=== PATIENT | female | born 1965 | race Caucasian/White ===

== ENCOUNTER 2017-08-03 06:06 | Day surgery (SDC) | payer OTHER ==
[~2017-08-03] VITALS: Ht 157.5 cm; Wt 65.5 kg
[2017-08-03] MEDS ORDERED: FISH1200 PO (06:52)
[2017-08-03] MEDS ORDERED: VITA200C3 PO (06:52)
[2017-08-03] MEDS ORDERED: VITA500T83 PO (06:52)
[2017-08-03 06:58] VITALS: BP 109/81; PULSE 59; RESP 18; TEMP 98.7; O2SAT 100
[2017-08-03] MEDS ORDERED: CHLORHEXIDINE GLUCONATE 2 % 1 PACK (2 CLOTHS) TOPICAL SCH (07:15)
[2017-08-03] MEDS ORDERED: POVIDONE IODINE 5% (ANTISEPSIS KIT) 4 APPLICATIONS EACH NARE SCH (07:15)
[2017-08-03] MEDS: ceFAZolin 2 GM PREMIX 50 ML - implanted port/tunneled catheter insertion IV SCH ×2 (07:29→10:53)
[2017-08-03] MEDS: VANCOMYCIN 1 GM/200 ML PREMIX ON-CALL IV SCH ×2 (07:30→10:53)
[2017-08-03 07:31] LABS: AUTOMATED NEUTROPHIL # 2.4 TH/MM3 (1.8-7.7); BASOPHIL % 0.9 % (0.0-2.0); EOSINOPHIL # 0.3 TH/MM3 (0-0.4); EOSINOPHIL % 5.8 % (0.0-4.0); HEMATOCRIT 37.5 % (35.0-46.0); LYMPH % 33.6 % (9.0-44.0); LYMPHOCYTE # 1.6 TH/MM3 (1.0-4.8); MEAN CELL VOLUME 64.8 FL (80.0-100.0); MEAN CORPUSCULAR HEMOGLOBIN 20.7 PG (27.0-34.0); MEAN CORPUSCULAR HGB CONC 31.9 % (32.0-36.0); MEAN PLATELET VOLUME 8.6 FL (7.0-11.0); MONO % 8.4 % (0.0-8.0); MONOCYTE # 0.4 TH/MM3 (0-0.9); NEUT % 51.3 % (16.0-70.0); PLATELET COUNT 348 TH/MM3 (150-450); RED BLOOD COUNT 5.79 MIL/MM3 (4.00-5.30); WHITE BLOOD COUNT 4.6 TH/MM3 (4.0-11.0)
[2017-08-03 07:40] LABS: PROTHROMBIN TIME - PATIENT 9.7 SEC (9.8-11.6)
[2017-08-03] MEDS ORDERED: LIDOCAINE 1%/EPINEPHrine 1:100,000 SOLN 20 ML VIAL ONE (07:50)
[2017-08-03] MEDS ORDERED: fentaNYL CITRATE 250 MCG/5 ML AMP ONE (07:56)
[2017-08-03] MEDS ORDERED: MIDAZOLAM HCL 5 MG/5 ML VIAL ONE (07:56)
[2017-08-03] MEDS ORDERED: SODIUM BICARBONATE 8.4% INJ 50 ML ONE (08:27)
--- NOTE | 2017-08-03 08:49 | PD.RAD ---
Post Procedure Progress Note Pre Procedure Diagnosis: (1) Breast cancer Post Procedure Diagnosis: (1) Breast cancer Procedure Date: Aug 03, 2017 Supervising Radiologist: Jose Guadalupe Hardy Estimated blood loss: 2cc Anesthesia: Local, Conscious Sedation Plan of Activity Patient to Unit: ROPU Patient Condition: Good Additional Comments: Port placed via the right IJ catheter in good position OK for use See PACS Report for procedural detail/treatment Jose Guadalupe Hardy MD Aug 03, 2017 08:49
[2017-08-03 09:00] VITALS: BP 98/67; PULSE 58; RESP 18; TEMP 97.7; O2SAT 98
[2017-08-03] MEDS ORDERED: SODIUM CHLORIDE 0.9% FLUSH 10 ML FLUSH IVF PRN (09:00)
[2017-08-03 09:15] VITALS: BP 104/69; PULSE 99; RESP 18; O2SAT 97
[2017-08-03 09:45] VITALS: BP 108/69; PULSE 60; PULSE 80; RESP 16; O2SAT 100
[2017-08-03 10:15] VITALS: BP 104/73; PULSE 58; RESP 16; O2SAT 99
[2017-08-03 10:45] VITALS: BP 91/68; PULSE 56; RESP 18; O2SAT 99
--- NOTE | 2017-08-04 16:07 | RADRPT ---
EXAM DATE: 08/03/2017 9:04 AM EDT AGE/SEX: 52 years / Female INDICATIONS: Patient presents with breast cancer in need of port placement for treatment. CLINICAL DATA: This is the patient's initial encounter. Patient reports that signs and symptoms have been present for 1 month and indicates a pain score of 0/10. MEDICAL/SURGICAL HISTORY: Carcinoma, breast. Smoker Anxiety Breast biopsy. Hysterectomy. Lymp h node biopsy COMPARISON: No prior exams available for comparison. FLUORO TIME (min): 0.5 IMAGE SERIES: SEDATION TIME (min): 30 MEDICATION(S): 5mg midazolam (Versed) IV 200mcg fentanyl (Sublimaze) IV DEVICE(S): Right 8F Infuse a port PROCEDURE : 1. Continuous pulse oximetry and EKG monitoring. 2. Intravenous conscious sedation. 3. Ultrasound guidance for venous access. 4. Fluoroscopic guided implantable central venous port placement. The patient was placed supine. The neck was prepped in sterile fashion. Full sterile technique was u sed, including cap, mask, sterile gloves and gown, and a large sterile sheet. Hand hygiene and 2% ch lorhexidine Betadine was utilized per protocol for cutaneous antisepsis with appropriate dry time for site. Sterile gel and sterile probe cover were utilized for ultrasound guidance. The skin and sub cutaneous tissues were infiltrated with local anesthetic solution. Under direct ultrasound guidance, central venous access was accomplished in the targeted vessel. The ultrasound images depicting access guidance were stored and saved to PACS for permanent record. A s ubcutaneous pocket was created using blunt dissection. The port was introduced to the pocket. The c atheter tubing was fed through a subcutaneous tunnel to the venotomy site. The catheter tubing was c ut to a suitable length and then was introduced through a valved Peel-Away sheath and positioned with catheter tubing tip at the cavo-atrial junction level. The pocket incision was closed with subcutic ular Vicryl suture. Steri-Strips were applied. The port was flushed and locked with heparin solutio n per protocol. Sterile dressing was applied to the site. The patient tolerated the procedure well. Conscious sedation was performed with the prescribed dosages and duration as above in the presence of an independent trained radiology nurse to assist in the monitoring of the patient. EKG and oximetry remained stable throughout the procedure. The patient tolerated the procedure well and there were no complications. The patient was sent to post anesthesia recovery in stable condition. CONCLUSION: 1. Uncomplicated ultrasound and fluoroscopic guided implanted central venous port catheter placement as described in detail above. An 8 Divehi Power port was placed. Electronically signed by: Jose Guadalupe Hardy MD 08/04/2017 3:47 PM EDT
== END 2017-08-03 11:10 | disposition home or self-care (01) ==
LOC: HROP 06:06 → HRIP 06:10 → HROP 11:10
PROVIDERS: ATTEND Internal Medicine Hematology & Oncology
DX: C50.911 Malignant neoplasm of unspecified site of right female breast (principal); F17.200 Nicotine dependence, unspecified, uncomplicated; F41.9 Anxiety disorder, unspecified
CPT/HCPCS: 36561; 76937; 77001; 85025; 85610; 85730; 99152; 99153; C1788; J0690; J1642; J2250; J3010; J3370